=== PATIENT | female | born 1955 | race Native Hawaiian/Other Pacific Islander ===

== ENCOUNTER 2021-01-21 14:25 | Outpatient (CLI) | payer OTHER | END 2021-01-21 20:16 | disposition home or self-care (01) | LOC: INF 14:25 | PROVIDERS: ATTEND Internal Medicine | DX: Z23 Encounter for immunization (principal) | CPT/HCPCS: 96372 ==

== ENCOUNTER 2021-02-25 09:14 | Outpatient (CLI) | payer OTHER | END 2021-02-25 19:09 | disposition home or self-care (01) | LOC: INF 09:14 | PROVIDERS: ATTEND Internal Medicine | DX: Z23 Encounter for immunization (principal) | CPT/HCPCS: 96372 ==